=== PATIENT | male | born 1965 | race Caucasian/White ===

== ENCOUNTER 2020-02-04 19:14 | Emergency (ER) | payer BC ==
[~2020-02-04] VITALS: Ht 182.9 cm; Wt 100.0 kg
[2020-02-04 19:21] VITALS: Ht 182.9 cm; Wt 100.0 kg
[2020-02-04] MEDS ORDERED: ASPIRIN81 MG PO (19:22)
[2020-02-04] MEDS ORDERED: LIPITOR80 MG PO (19:22)
[2020-02-04 19:40] LABS: BILIRUBIN NEGATIVE (NEGATIVE); GLUCOSE NEGATIVE (NEGATIVE); KETONE NEGATIVE (NEGATIVE); NITRITE NEGATIVE (NEGATIVE); SPECIFIC GRAVITY 1.025 (1.005-1.020); UROBILINOGEN NORMAL (NORMAL)
[2020-02-04 19:41] LABS: BACTERIA FEW /hpf (NEGATIVE); RED CELLS - URINE 25-50 /hpf (0-5); WHITE CELLS - URINE 0-5 /hpf (NEGATIVE)
[2020-02-04 19:44] LABS: BASOPHILS 0.5 % (0-2); EOSINOPHILS 10.2 % (0-7); HEMOGLOBIN 14.7 g/dL (13.5-17.5); IMMATURE GRANULOCYTES 0.2 % (0-5); LYMPHOCYTES 29.7 % (15-50); MCH 29.1 pg (26.0-34.0); MCHC 33.4 g/dL (31.0-37.0); MEAN PLATELET VOLUME 8.7 fL (7.4-10.4); MONOCYTES 7.4 % (2-11); PLATELET COUNT 328 10x3/uL (130-400); RBC 5.06 10x6/uL (4.20-6.10); RDW 13.7 % (11.5-14.5); WBC 10.6 10x3/uL (4.8-10.8)
[2020-02-04 20:07] LABS: CALCIUM 8.7 mg/dL (8.5-10.1); CARBON DIOXIDE 26.2 mmol/L (21.0-32.0); CREATININE - SERUM 1.2 mg/dL (0.6-1.3); POTASSIUM - SERUM 4.2 mmol/L (3.5-5.1)
[2020-02-04 20:15] LABS: ALBUMIN 3.7 g/dL (3.4-5.0); BILIRUBIN - TOTAL 0.34 mg/dL (0.2-1.3); PROTEIN - SERUM 7.4 g/dL (6.4-8.2)
[2020-02-04] MEDS ORDERED: HYDROCODON-ACE1 EA10 PO (20:36)
[2020-02-04 20:57] VITALS: BP 126/77
== END 2020-02-04 20:57 | disposition home or self-care (01) ==
LOC: D.ER 19:14
PROVIDERS: Family Medicine
DX: R10.9 Unspecified abdominal pain (principal); Z87.442 Personal history of urinary calculi; I10 Essential (primary) hypertension